=== PATIENT | male | born 1965 | race American Indian/Alaskan Native ===

== ENCOUNTER 2016-05-05 12:30 | Emergency (ER) | payer SELFPAY ==
[2016-05-05 14:46] LABS: Basophils % (Auto) 0.8 % (0.0-1.8); Eosinophils % (Auto) 0.5 % (0.0-4.3); Hematocrit 44.1 % (35.5-45.6); Hemoglobin 15.1 gm/dl (11.8-15.2); Mean Corpuscular HGB Conc 34 % (32-34); Mean Corpuscular Hemoglobin 30 pg (28-32); Mean Corpuscular Volume 86 fl (84-94); Platelet Count 241 K/mm3 (140-440); Red Blood Count 5.11 M/mm3 (3.65-5.03); Red Cell Distribution Width 13.7 % (13.2-15.2); White Blood Count 7.7 K/mm3 (4.5-11.0)
[2016-05-05 16:10] LABS: Alanine Aminotransferase 17 units/L (7-56); Albumin 4.6 g/dL (3.9-5); Albumin/Globulin Ratio 1.4 %; Alkaline Phosphatase 61 units/L (35-129); Anion Gap 20 mmol/L; Bilirubin,Total 0.5 mg/dL (0.1-1.2); Blood Urea Nitrogen 15 mg/dL (9-20); Calcium 9.6 mg/dL (8.4-10.2); Carbon Dioxide 22 mmol/L (22-30); Chloride 103.6 mmol/L (98-107); Glucose 104 mg/dL (75-100); Lipase 25 units/L (13-60); Potassium 4.1 mmol/L (3.6-5.0); Sodium 141 mmol/L (137-145)
[2016-05-05 16:19] LABS: Bilirubin,Urine NEG (Negative); Blood,Urine LG (Negative); Ketones,Urine TR mg/dL (Negative); Leukocyte Esterase,Urine NEG (Negative); Mucus,Urine 3+ /HPF; Nitrite,Urine NEG (Negative); Urobilinogen,Urine < 2.0 mg/dL (<2.0)
--- NOTE | 2016-05-05 18:07 | Cat Scan Report ---
FINAL REPORT PROCEDURE: CT ABDOMEN PELVIS WO CON TECHNIQUE: Computerized axial tomography of the abdomen and pelvis was performed without intravenous contrast. This study is performed without intravascular contrast material and its sensitivity for abdominal and pelvic pathology, including neoplasms, inflammation, abscess, free fluid, thrombosis, arterial dissection and infarction, is reduced compared with a contrast enhanced study. HISTORY: Right LBP, hematuria COMPARISON: No prior studies are available for comparison. FINDINGS: Minimal hypoventilatory changes are seen in the lower lungs. Spleen is normal in size. 7 millimeter hypodensity in the posterior aspect of the right hepatic lobe is probably a cyst but confirmation with ultrasound is recommended. It may be difficult to visualize given the location, though. The gallbladder and pancreas appear normal. Adrenal glands and abdominal aorta are normal in size. No renal abnormalities are seen. No ureteral stones or dilation are seen. Prostate gland is enlarged measuring 8.5 x 6.5 x 5.6 cm. It bulges into the urinary bladder with possible bladder invasion. Small amount of hyperdensity is seen in the dependent portion of the urinary bladder that could possibly be hemorrhage. A sludge ball would be a less likely etiology. No definite bladder wall thickening is seen. No suspicious pelvic lymphadenopathy is seen. Mild right inguinal hernia is seen containing fat. There is no free pelvic fluid. Mild right-sided constipation is seen. Appendix appears normal. Moderate spondylosis is seen at L4-5. IMPRESSION: Prostatomegaly is seen with likely hemorrhage in the urinary bladder. Prostate malignancy and bladder invasion cannot be excluded. No renal or ureteral stones are seen. There is no hydronephrosis. Mild right-sided constipation is seen. 7 millimeter hypodensity in the posterior aspect of the right hepatic lobe is probably a cyst but should be confirmed with ultrasound.
[2016-05-05] MEDS ORDERED: ZOFRAN IV ONE (23:31)
[2016-05-05] MEDS ORDERED: MORPHINE IV ONE (23:31)
--- NOTE | 2016-05-05 23:37 | Emergency Department Report ---
ED Male HPI - General Chief complaint: Abdominal Pain Stated complaint: UNABLE TO URINATE/BLOOD IN URINE Time Seen by Provider: 05/05/16 23:03 Source: patient Mode of arrival: Ambulatory Limitations: No Limitations - History of Present Illness Initial comments: 50-year-old male with a past medical history of a state hypertrophy presents to hospital complaining of difficulty urinating since this morning. Patient states he only urinated small amounts at a time and it is brown in color. Patient has to strain impression on his bladder in order to urinate. Patient feels like he cannot completely empty his bladder. He also pain is left flank pain. No reports of trauma, fever, dysuria, or vomiting. History urinary retention 2 years ago and was treated by by Dr. Thomson. Prostate biopsy was not malignant at that time. Patient states he does take medication for his prostate but cannot recall the name but states it is not Flomax. - Related Data Previous Rx's Medication Instructions Recorded Last Taken Type Ciprofloxacin HCl [Ciprofloxacin 500 mg PO BID #20 tablet 05/06/16 Unknown Rx TAB] traMADol [Ultram 50 MG tab] 50 mg PO Q6HR PRN #20 tablet 05/06/16 Unknown Rx Allergies Allergy/AdvReac Type Severity Reaction Status Date / Time No Known Allergies Allergy Verified 05/06/16 00:08 ED Review of Systems ROS: Stated complaint: UNABLE TO URINATE/BLOOD IN URINE Other details as noted in HPI Comment: All other systems reviewed and negative Other: Constitutional: No fevers chills Eyes: No eye pain visual changes ENT: No ear pain or throat pain Neck: Denies pain Respiratory: Denies cough wheezing shortness of breath Cardiovascular: Denies chest pain, palpitations, syncope GI: as per hpi : as per hpi Musculoskeletal: Denies back pain Skin: Denies rash, lesions, erythema Neurologic: Denies headache, numbness, weakness Psychiatric: Denies suicidal ideation, hallucinations ED Past Medical Hx - Past Medical History Additional medical history: ENLARGED PROSTATE - Surgical History Additional Surgical History: FX CHIN - Social History Smoking Status: Current Every Day Smoker Substance Use Type: Alcohol, Marijuana - Medications Home Medications: Home Medications Medication Instructions Recorded Confirmed Last Taken Type Ciprofloxacin HCl [Ciprofloxacin 500 mg PO BID #20 tablet 05/06/16 Unknown Rx TAB] traMADol [Ultram 50 MG tab] 50 mg PO Q6HR PRN #20 tablet 05/06/16 Unknown Rx ED Physical Exam - General Limitations: No Limitations - Other Other exam information: General: No limitations, patient is alert in no acute distress Head exam: Atraumatic, normocephalic Eyes exam: Normal appearance, pupils equal reactive to light, extraocular movements intact ENT: Moist mucous membrane, normal oropharynx Neck exam: Normal inspection, full range of motion, no meningismus nontender Respiratory exam: Clear to auscultation bilateral, no wheezes, rales, crackles Cardiovascular: Normal rate and rhythm, normal heart sounds Abdomen: Soft, nondistended, suprapubic tenderness, with normal bowel sounds, no rebound, or guarding Extremity: Full range of motion normal inspection no deformity Back: Normal Inspection, full range of motion, no tenderness Neurologic: Alert, oriented x3, cranial nerves intact, no motor or sensory deficit Psychiatric: normal affect, normal mood Skin: Warm, dry, intact ED Course Vital Signs 05/05/16 05/05/16 05/05/16 13:38 17:11 23:11 Temperature 98.3 F 98.0 F 98.2 F Pulse Rate 82 83 84 Respiratory 20 17 16 Rate Blood Pressure 154/96 148/101 Blood Pressure 161/94 [Left] O2 Sat by Pulse 99 99 98 Oximetry - Reevaluation(s) Reevaluation #1: 05/05/16 23:36 morphine and zofran ordered Reevaluation #2: 05/06/16 01:21 Additional Dilaudid ordered for pain RN place 3-way catheter 18 [place] without difficulty. Bloody urine draining from the bladder. Shea's drip initiated however, there was no output from the Billy catheter with Shea drip. Patient had increased suprapubic pressure and urine came out around the catheter some of the urethra. Billy was irrigated manually with some clot removal however still not irrigating with Shea drip. 18 [place] catheter was removed by RN and 22 [place] cath replaced. Positive passage of large clots to Billy catheter with improvement and suprapubic pain. Shea's drip initiated and now flowing in and out of the bladder without difficulty. Reevaluation #3: 05/06/16 02:27 Patient's catheter occluded once again while receiving a Shea drip. I went and purposely to previously irrigate the Billy catheter was able to remove several clots. Now clear urine draining. Second Shea bag initiated to ensure that draining continues. Patient be sent to Dr. Ibarra - Consultations Consultation #1: 05/06/16 00:[address] Carver personal security specialist for Dr. Thomson and he agrees with Billy catheter placement and outpatient follow-up. ED Medical Decision Making - Lab Data Result diagrams: 05/05/16 14:35 05/05/16 14:35 Lab Results 05/05/16 05/05/16 05/05/16 Range/Units 14:28 14:35 14:35 WBC 7.7 (4.5-11.0) K/mm3 RBC 5.11 H (3.65-5.03) M/mm3 Hgb 15.1 (11.8-15.2) gm/dl Hct 44.1 (35.5-45.6) % MCV 86 (84-94) fl MCH 30 (28-32) pg MCHC 34 (32-34) % RDW 13.7 (13.2-15.2) % Plt Count 241 (140-440) K/mm3 Lymph % (Auto) 22.5 (13.4-35.0) % [place] % (Auto) 7.8 H (0.0-7.3) % Eos % (Auto) 0.5 (0.0-4.3) % Baso % (Auto) 0.8 (0.0-1.8) % Lymph # 1.7 (1.2-5.4) K/mm3 [place] # 0.6 (0.0-0.8) K/mm3 Eos # 0.0 (0.0-0.4) K/mm3 Baso # 0.1 (0.0-0.1) K/mm3 Seg Neutrophils % 68.4 (40.0-70.0) % Seg Neutrophils # 5.3 (1.8-7.7) K/mm3 Sodium 141 (137-145) mmol/L Potassium 4.1 (3.6-5.0) mmol/L Chloride 103.6 (98-107) mmol/L Carbon Dioxide 22 (22-30) mmol/L Anion Gap 20 mmol/L BUN 15 (9-20) mg/dL Creatinine 1.0 (0.8-1.5) mg/dL Estimated GFR > 60 ml/min BUN/Creatinine Ratio 15.00 % Glucose 104 H (75-100) mg/dL Calcium 9.6 (8.4-10.2) mg/dL Total Bilirubin 0.5 (0.1-1.2) mg/dL AST 22 (5-40) units/L ALT 17 (7-56) units/L Alkaline Phosphatase 61 (35-129) units/L Total Protein 8.0 (6.3-8.2) g/dL Albumin 4.6 (3.9-5) g/dL Albumin/Globulin Ratio 1.4 % Lipase 25 (13-60) units/L Urine Color Red (Yellow) Urine Turbidity Cloudy (Clear) Urine pH 6.0 (5.0-7.0) Ur Specific [place] 1.024 (1.003-1.030) Urine Protein 100 mg/dl (Negative) mg/dL Urine Glucose (UA) 50 (Negative) mg/dL Urine Ketones Tr (Negative) mg/dL Urine Blood Lg (Negative) Urine Nitrite Neg (Negative) Urine Bilirubin Neg (Negative) Urine Urobilinogen < 2.0 (<2.0) mg/dL Ur Leukocyte Esterase Neg (Negative) Urine WBC (Auto) 3.0 (0.0-6.0) /HPF Urine RBC (Auto) 129.0 (0.0-6.0) /HPF U Epithel Cells (Auto) 2.0 (0-13.0) /HPF Urine Mucus 3+ /HPF - Radiology Data Radiology results: report reviewed (CT abdomen and pelvis without contrast: Approximately seen was likely hemorrhage from a urinary bladder. Prostate malignancy and bladder invasion cannot be excluded) - Medical Decision Making Patient's bladder obstruction with secondary to bladder hemorrhage/clots. This has improved with Billy catheter irrigation. With Shea drip urine output has cleared and not quite as bloody. Obstruction has been relieved at this time. Patient will be discharged home with catheter in place and instructed to follow- up with urology for further management. Patient be empirically placed on antibiotics as per Dr. Sanz's recommendation Pt signed out to Dr Ibarra to reevaluate patient after second Shea bag complete to ensure patient does have a recurrent blockage of Billy catheter. If recurrent blockage continues requiring vigorous manual irrigation recommended reconsultation with Dr. Carver to determine if patient requires admission to the hospital. If irrigationis successful without recurrent obstruction patient can be discharged with Billy catheter, leg bag, and prescribed in a vice and pain medication - Differential Diagnosis prostate cancer, prostate hypertrophy, urinary retention, UTI, hemorrhagic Critical Care Time: No Critical care attestation.: If time is entered above; I have spent that time in minutes in the direct care of this critically ill patient, excluding procedure time. ED Disposition Clinical Impression: Hemorrhagic cystitis, Enlarged prostate, Bladder obstruction Disposition: DISCHARGED TO HOME OR SELFCARE Is pt being admited?: No Does the pt Need Aspirin: No Condition: Stable Instructions: Urinary Retention in Men (ED), Benign Prostatic Hypertrophy (ED) , Acute Hematuria (ED), Urinary Leg Bag (GEN) Additional Instructions: Continue to wear the Billy until you follow up with the urologist for assessment and removal. Take the medication as prescribed. Return if symptoms worsen. Prescriptions: Ciprofloxacin HCl [Ciprofloxacin TAB] 500 mg PO BID #20 tablet traMADol [Ultram 50 MG tab] 50 mg PO Q6HR PRN #20 tablet PRN Reason: Pain Referrals: LIANA THOMSON MD [Staff Physician] - 2-3 Days Time of Disposition: 02:30 (s/p to Dr ibarra)
[2016-05-06] MEDS ORDERED: NACL 0.9% 500 ML IR ONE (00:41)
[2016-05-06] MEDS ORDERED: DILAUDID ONE (00:53)
[2016-05-06] MEDS ORDERED: DILAUDID IV ONE (00:57)
[2016-05-06] MEDS ORDERED: NACL 0.9% IR SCH (01:00)
[2016-05-06 03:15] VITALS: BP 134/89
== END 2016-05-06 03:17 | disposition home or self-care (01) ==
LOC: ED 12:30
DX: N40.0 Benign prostatic hyperplasia without lower urinary tract symptoms (principal); N30.90 Cystitis, unspecified without hematuria; N32.0 Bladder-neck obstruction; F17.200 Nicotine dependence, unspecified, uncomplicated; F12.10 Cannabis abuse, uncomplicated
CPT/HCPCS: 36415; 51702; 74176; 80053; 81001; 83690; 85025; 96374; 96375; 99284; A4217; J1170; J2270; J2405